=== PATIENT | female | born 1995 | race Caucasian/White ===

== ENCOUNTER 2017-03-08 10:37 | Emergency (ER) | payer BC ==
[~2017-03-08] VITALS: Ht 170.2 cm; Wt 70.5 kg
[~2017-03-08 10:37] MED LIST: [UNRECOGNIZED DRUG - OTHER]
[2017-03-08 10:42] VITALS: TEMP 98.3
[2017-03-08] MEDS ORDERED: STOMACH MEDICINE (10:46)
[2017-03-08 11:18] LABS: BASO # 0.1 (0.0-0.2); BASO % 2.1 % (0.0-2.0); EOS # 0.2 (0.0-0.7); EOS % 3.7 % (0-4.0); GRAN # 3.3 (1.4-6.5); GRAN % 58.3 % (42.2-75.2); HEMATOCRIT 45.9 % (37.0-47.0); HEMOGLOBIN 15.3 g/dl (12.5-16.0); LYMPH # 1.5 (1.2-3.4); LYMPH % 27.2 % (20.0-51.0); MEAN CELL VOLUME 92 fl (80.0-100.0); MEAN CORPUSCULAR HEMOGLOBIN 31 pg (27.0-31.0); MEAN CORPUSCULAR HGB CONC 33 g/dl (33.0-37.0); MEAN PLATELET VOLUME 11.2 fl (7.4-10.4); MONO # 0.5 (0.1-0.6); MONO % 8.3 % (1.7-9.3); PLATELET COUNT 180 K/mm3 (130-400); REDCELL DISTRIBUTION WIDTH-CV 12.5 % (11.5-14.5); WHITE BLOOD COUNT 5.7 K/mm3 (4.8-10.8)
[2017-03-08 12:00] LABS: PH 6 (5-8); SQUAMOUS EPITHELIAL 0-2 /hpf; URINE APPEARANCE Hazy; URINE BACTERIA None Seen /hpf; URINE BILIRUBIN Negative (NEGATIVE); URINE BLOOD Negative (NEGATIVE); URINE COLOR Yellow; URINE GLUCOSE Negative (NEGATIVE); URINE KETONE Trace (NEGATIVE); URINE RBC 0-2 /hpf; URINE UROBILINOGEN Negative (NEGATIVE); URINE WBC 0-2 /hpf
[2017-03-08 12:01] LABS: ADJUSTED CALCIUM 8.4 mg/dL (8.4-10.2); ALANINE AMINOTRANSFERASE 19 U/L (9-52); ALBUMIN 4.7 gm/dL (3.5-5.0); ALKALINE PHOSPHATASE 69 U/L (50-136); ANION GAP 14 mmol/L (7-16); BILIRUBIN,TOTAL 0.9 mg/dL (0.0-1.0); BLOOD UREA NITROGEN 9 mg/dL (7-17); CARBON DIOXIDE 20 mmol/L (22-30); CHLORIDE 108 mmol/L (98-107); CREATININE, serum 0.71 mg/dL (0.52-1.25); GLUCOSE 93 mg/dL (74-106); POTASSIUM 3.8 mmol/L (3.4-5.0); SODIUM 141 mmol/L (137-145); TOTAL PROTEIN 7.8 gm/dL (6.4-8.2)
[2017-03-08 12:03] LABS: ACETAMINOPHEN < 10 ug/mL (10-30); C-REACTIVE PROTEIN < 0.5 mg/dL (0.0-0.9); SALICYLATE < 1.0 mg/dL
[2017-03-08 12:47] LABS: AMPHETAMINE URINE NEGATIVE; BARBITURATES URINE NEGATIVE; BENZODIAZEPINES URINE NEGATIVE; BUPRENORPHINE URINE NEGATIVE; METHADONE URINE NEGATIVE; OPIATES URINE NEGATIVE; OXYCODONE URINE NEGATIVE; PHENCYCLIDINE URINE NEGATIVE; PROPOXYPHENE URINE NEGATIVE
[2017-03-08 12:48] LABS: THC CANNABINOIDS URINE POSITIVE
[2017-03-08 16:01] VITALS: BP 105/63; PULSE 88
== END 2017-03-08 16:03 | disposition home or self-care (01) ==
LOC: COL.ER 10:37
PROVIDERS: Physician Assistant
DX: R10.13 Epigastric pain (principal); F32.9 Major depressive disorder, single episode, unspecified; F41.9 Anxiety disorder, unspecified; F12.10 Cannabis abuse, uncomplicated; Z90.49 Acquired absence of other specified parts of digestive tract; Z32.02 Encounter for pregnancy test, result negative
CPT/HCPCS: J2060; J7030

== ENCOUNTER 2017-03-20 18:23 | Emergency (ER) | payer BC ==
[~2017-03-20] VITALS: Ht 170.2 cm; Wt 64.4 kg
[~2017-03-20 18:23] MED LIST changes: +STOMACH MEDICINE
[2017-03-20 18:27] VITALS: TEMP 97.7
[2017-03-20] MEDS ORDERED: PRILOSEC 20MG20 MG PO (18:30)
[2017-03-20 19:39] LABS: BASO # 0.1 (0.0-0.2); BASO % 1.1 % (0.0-2.0); EOS # 0.1 (0.0-0.7); EOS % 1.5 % (0-4.0); GRAN # 4.6 (1.4-6.5); HEMATOCRIT 46.3 % (37.0-47.0); HEMOGLOBIN 15.5 g/dl (12.5-16.0); LYMPH # 2.6 (1.2-3.4); LYMPH % 32.7 % (20.0-51.0); MEAN CELL VOLUME 92 fl (80.0-100.0); MEAN CORPUSCULAR HEMOGLOBIN 31 pg (27.0-31.0); MEAN CORPUSCULAR HGB CONC 34 g/dl (33.0-37.0); MEAN PLATELET VOLUME 11.6 fl (7.4-10.4); MONO # 0.6 (0.1-0.6); MONO % 7.5 % (1.7-9.3); PLATELET COUNT 202 K/mm3 (130-400); RED BLOOD COUNT 5.01 M/mm3 (4.10-5.30)
[2017-03-20 19:45] LABS: PH 5 (5-8); URINE APPEARANCE Hazy; URINE BACTERIA None Seen /hpf; URINE BILIRUBIN Negative (NEGATIVE); URINE BLOOD Negative (NEGATIVE); URINE COLOR Yellow; URINE GLUCOSE Negative (NEGATIVE); URINE KETONE 2+ (NEGATIVE); URINE RBC 0-2 /hpf
[2017-03-20 19:58] LABS: ADJUSTED CALCIUM 9.1 mg/dL (8.4-10.2); ALBUMIN 4.5 gm/dL (3.5-5.0); BILIRUBIN,TOTAL 0.8 mg/dL (0.0-1.0); CALCIUM 9.5 mg/dL (8.4-10.2); CREATININE, serum 0.72 mg/dL (0.52-1.25); POTASSIUM 3.6 mmol/L (3.4-5.0); TOTAL PROTEIN 7.5 gm/dL (6.4-8.2)
[2017-03-20] MEDS ORDERED: NORCO 325 MG-51 TAB PO (22:05)
[2017-03-20 22:15] VITALS: BP 108/78; PULSE 73
== END 2017-03-20 22:22 | disposition home or self-care (01) ==
LOC: COL.ER 18:23
PROVIDERS: Emergency Medicine
DX: K29.70 Gastritis, unspecified, without bleeding (principal); K25.9 Gastric ulcer, unspecified as acute or chronic, without hemorrhage or perforation; R19.7 Diarrhea, unspecified
CPT/HCPCS: J2405; J3010; J7030; Q9967

== ENCOUNTER → 2017-04-06 | Outpatient (CLI) | payer BC ==
[~2017-04-06] MED LIST changes: +NORCO 325 MG-51 TAB PO; +PRILOSEC 20MG20 MG PO
== END ==
LOC: COL.RAD 07:53
DX: R10.84 Generalized abdominal pain (principal)
CPT/HCPCS: A9541